=== PATIENT | male | born 1940 | race Caucasian/White ===

== ENCOUNTER 2019-06-02 10:23 | Outpatient (CLI) | payer OTHER, SELFPAY ==
--- NOTE | 2019-06-02 10:26 | ECG_ITS ---
Measurements Intervals [place] Rate: 74 P: 93 [place]: 241 QRS: -8 QRSD: 110 T: 31 QT: 377 QTc: 419 Interpretive Statements SINUS RHYTHM WITH FIRST DEGREE AV BLOCK VENTRICULAR PREMATURE COMPLEX DELAYED PRECORDIAL R/S TRANSITION LOW QRS VOLTAGE IN PRECORDIAL LEADS BASELINE ARTIFACT- V6 ABNORMAL ECG Electronically Signed On 06-02-2019 10:54:29 SALES AND BUSINESS DEVELOPMENT MANAGER by Alexandro Camejo D.O.
[2019-06-02 11:31] LABS: INR 0.9
[2019-06-02 11:32] LABS: Partial Thromboplastin Time 26.5 SECONDS (22.3-36.8)
[2019-06-02 11:39] LABS: Blood Urea Nitrogen 21 mg/dL (9-20); Calcium 9.3 mg/dL (8.4-10.2); Carbon Dioxide 29 mmol/L (22-30); Chloride 102 mmol/L (98-107); Estimated Glomerular Filt Rate > 60; Glucose 98 mg/dL (75-110); Potassium 4.8 mmol/L (3.4-5.0); Sodium 139 mmol/L (137-145)
== END 2019-06-02 10:24 | disposition home or self-care (01) ==
LOC: ANHSURGERY 10:26
PROVIDERS: Anesthesiology; PCP Internal Medicine; Visit Provider Orthopaedic Surgery
DX: Z01.818 Encounter for other preprocedural examination (principal); I10 Essential (primary) hypertension; N18.3 Chronic kidney disease, stage 3 (moderate); R94.31 Abnormal electrocardiogram [ECG] [EKG]
CPT/HCPCS: 36415; 80048; 85610; 85730; 93005

== ENCOUNTER 2019-06-16 01:20 | Day surgery (SDC) | payer OTHER, SELFPAY ==
[2019-05-31 11:46] VITALS: BMI 26.5
--- NOTE | 2019-06-14 12:01 | PM.IMHP ---
H&P: HPI History of Present Illness Chief complaint: Left Rotator Cuff Tear Narrative: Cholo Delarosa is a 78 year old male Who presents with left shoulder pain. Patient reports chronic aching pain worse with overhead type activities somewhat relieved by rest. His pain radiates into the upper arm is aching and pain despite conservative measures on his own. It has been ongoing for several months he has no known trauma or injury, it keeps him awake at night and limits his daily activities. Despite a course of further conservative management including cortisone therapy and anti-inflammatories symptoms continue. An MRI scan was done that shows supraspinatus tendinosis and partial-thickness intrasubstance tearing of the supraspinatus musculotendinous junction. No evidence of a full-thickness rotator cuff tear seen. There is AC joint hypertrophy and mild narrowing of the subacromial space. These factors are likely causing impingement and related to such. There is a question of an ill-defined tear the inferior labrum in the anterior labrum is not well characterized and may be hypoplastic. There is mild subacromial bursitis and a small glenohumeral effusion. Long head of the biceps tendon is intact and located in the bicipital groove. At this point the patient has failed conservative measures he has discuss further treatment options in detail with . Niko continues to have ongoing pain and dysfunction in the shoulder and would now like to proceed with arthroscopy acromioplasty distal clavicle excision and rotator cuff tendon repair versus debridement. Review of Systems Review of Systems: Narrative: Ten point review of systems otherwise negative All systems reviewed & are unremarkable except as noted in HPI and below PMFSH Surgical History Surgical History (Updated 06/14/19 @ 12:09 by CAROL Richardson) S/P right rotator cuff repair Family History Family History Mother Family history of malignant neoplasm of ovary Patient's mother is Father Family history of heart disease in male family member before age 55 Patient's father is Sibling Patient's sister is in good health Family history of heart disease in male family member before age 55 Patient's brother is Social History Social History Smoking status: Never smoker Alcohol intake: current Gender identity (if verbalized by the patient): Male Meds Home Medications and Allergies Home Medications Medication Instructions Recorded Confirmed Type amlodipine 5 mg tablet 5 mg PO DAILY 03/10/19 05/31/19 History aspirin 81 mg tablet,delayed 81 mg PO Q48H 03/10/19 05/31/19 History release rosuvastatin 10 mg tablet 10 mg PO DAILY #90 tablet 04/01/19 05/31/19 Rx dutasteride 0.5 mg-tamsulosin ER 1 cap PO DAILY #90 cap 04/30/19 05/31/19 Rx 0.4 mg capsule ext.release 24hr mphas Allergies Allergy/AdvReac Type Severity Reaction Status Date / Time No Known Allergies Allergy Unverified 05/31/19 11:43 Exam Narrative: Exam Narrative: HEENT exam within normal limits heart regular rate rhythm. Lungs clear auscultation. Abdomen benign bowel sounds positive for quads. Skin is intact without rashes or lesions. Extremities showed the patient's left shoulder painful with manipulation range of motion. He has pain with overhead type motion and painful reproduction of his symptoms with rotator cuff strength testing. He has some weakness with external rotation abduction which may be pain mediated. He has full range of motion actively and passively with a positive impingement sign. Shoulder joint is otherwise stable. He has full painless neck motion. Neurovascular is intact. Central nervous system exam within normal limits. The patient is noted to be 5 ft 10 in tall and 180 lb. Assessment and Plan Ad
[2019-06-16] VITALS (9 sets, daily range): BP systolic 127–161; BP diastolic 61–72; PULSE 64–84; RESP 14–20; TEMP 36.2–36.6; O2SAT 94–100
[2019-06-16] MEDS: LACTATED RINGERS 1,000 ML 30 ML IV CONT ×2 (06:25→08:41)
--- NOTE | 2019-06-16 06:43 | WPDANESEPPF ---
Anes - Initial Pre Proc Eval Procedure: Operation Date: 06/16/19 07:30 Proposed Procedures p Left Shoulder Arthroscopy, Acromioplasty, Open Distal Clavicle Excision, Rotator Cuff Repair, Proceed As Indicated - Yuan Pope MD Date/Time: 06/16/19 06:43 Surgeon: Yuan Pope MD Pre Op Diagnosis: Left Rotator Cuff Tear Patient Data Age: 78 Gender: M Height: 1.78 m Weight: 82.9 kg Last Vital Signs Temp 36.6 C 06/16/19 06:08 Pulse 64 06/16/19 06:08 Resp 20 06/16/19 06:08 BP 127/69 06/16/19 06:08 Pulse Ox 95 06/16/19 06:08 Allergies Allergy/AdvReac Type Severity Reaction Status Date / Time No Known Allergies Allergy Unverified 06/16/19 06:31 Home Medications Medication Instructions Recorded Confirmed Type amlodipine 5 mg tablet 5 mg PO DAILY 03/10/19 06/16/19 History aspirin 81 mg tablet,delayed 81 mg PO Q48H 03/10/19 06/16/19 History release rosuvastatin 10 mg tablet 10 mg PO DAILY #90 tablet 04/01/19 06/16/19 Rx dutasteride 0.5 mg-tamsulosin ER 1 cap PO DAILY #90 cap 04/30/19 06/16/19 Rx 0.4 mg capsule ext.release 24hr mphas ECG: SINUS RHYTHM WITH FIRST DEGREE AV BLOCK VENTRICULAR PREMATURE COMPLEX DELAYED PRECORDIAL R/S TRANSITION LOW QRS VOLTAGE IN PRECORDIAL LEADS BASELINE ARTIFACT- V6 Patient hx anesthesia problems: none Family hx anesthesia problems: none PMFSH Past Medical History Medical History (Updated 06/15/19 @ 09:24 by Chris Henning DO) Chronic kidney disease, stage 3 (moderate) Chronic neck pain Hyperlipidemia LDL goal <130 Hypertension Surgical History Surgical History (Updated 06/14/19 @ 12:09 by CAROL Richardson) S/P right rotator cuff repair Family History Family History Mother Family history of malignant neoplasm of ovary Patient's mother is Father Family history of heart disease in male family member before age 55 Patient's father is Sibling Patient's sister is in good health Family history of heart disease in male family member before age 55 Patient's brother is Social History Social History Smoking status: Never smoker Alcohol intake: current Gender identity (if verbalized by the patient): Male Anes - Eval Final PreProcedure Day of Procedure 06/16/19 06:43 Patient weight: overweight Heart: regular rate and rhythm Lungs: clear to auscultation and normal air movement Airway: Mallampati scale class II Neurological: alert and oriented Last oral intake: >/= 8 hours ASA classification: III Emergent: no Anesthetic plan: proceed Anesthesia type and monitoring: general ETT and standard monitoring Informed Consent: The patient's anesthetic plan and its attendant risks and benefits were discussed with the patient/family/POA. Questions were solicited and answers provided to the satisfaction of the patient/family/POA.
--- NOTE | 2019-06-16 06:44 | WPDANESPNB ---
Anes - Peripheral Nerve Block Date/Time: 06/16/19 06:44 I have discussed with the patient/family/POA the placement of a peripheral nerve block for post-operative pain management, including associated risks, benefits, complications, and side effects. Alternative methods of post-operative analgesia were detailed. Questions were solicited and answers provided to the satisfaction of the patient/family/POA. Time-Out: A pre-procedural Time-Out was completed immediately before starting the procedure and confirmed: Patient Identification, Site, Procedure, Patient Position and the Availability of Requisite Equipment. Clinical Indications: Acute post-operative pain management requested by the operative surgeon. Nerve Block Insertion Note Anes-nerve block: interscalene left Patient position: supine Skin prep: chlorhexidine Needle: 22 gauge, stimulating, insulated echogenic needle. Needle length: 50 mm Technique: ultrasound Injectate: bupivacaine 0.5% with epi 5 mcg/ml (30cc) Observations: tolerated well Complications: none Procedure start time:: 714 Procedure end time:: 717
--- NOTE | 2019-06-16 07:09 | WPDHPUPDATE1 ---
History and Physical Update Update Date/Time: 06/16/19 07:09 History and Physical has been reviewed, including an updated exam of the patient. There are NO changes in the patient's condition. Risks, benefits, and alternatives have been discussed and questions answered. Patient agrees to proceed with procedure.
[2019-06-16] MEDS: ceFAZolin 2 GM/D5W 50 ML 2 GM/50 ML BAG IVPB (07:25)
[2019-06-16] MEDS: LIDO 1%/EPINEPHRINE 1:100,000 20 ML VIAL INFILTRATE (07:47)
--- NOTE | 2019-06-16 08:28 | P.OP_ITS ---
Procedure Note - Detailed Date of procedure: 06/16/19 Pre-op diagnosis: Left Rotator Cuff Tear A/C Arthrosis Post-op diagnosis: same Procedure performed: Distal Clavicle Excision Debride and repair Rotator Cuff Anesthesia: GETA Surgeon: Yuan Pope MD Business Administration Professor: Madhav Buchanan Estimated blood loss (mL): 50 Drains: No Packing: No Pathology: none sent Complications: No immediate complications Condition: stable Disposition: PACU
--- NOTE | 2019-06-16 08:29 | SUR.OPER ---
EBL 10ML
--- NOTE | 2019-07-06 13:02 | PM.PROC ---
Procedure Note - Detailed Pre-op diagnosis: Left Rotator Cuff Tear Post-op diagnosis: same Anesthesia: GETA Surgeon: Yuan Pope MD Patient was brought to operating room #7. A general anesthetic was used. Patient was placed in the beach chair position and sterilely prepped and draped. Standard posterior and lateral portals were made. The shoulder was scoped and found to have significant tearing of the rotator cuff. The bicpes was intact The subacromial space showed substantial bursitis which was debrided with a shaver. An acromioplasty was then performed. The instruments were removed and a longitudinal incision made over the A/C joint. Disection carried down to the fascia. A distal clavicle excision was then performed removing about 3mm of distal clavicle. The edges were bevelled. The deltoid was split from the tip of the acromion distal for 2 cm. The rotator cuff tearing was visualized. This was debrided and repaired to the tuberosity in the area othat was debrided to bleeding bone. The acromion rapsed to maximize decompression. The deltoid was repaired to itself, the acromion and the trapezius, and closed with 2-0 vicryl and taj. The patient tolerated the procedure well. DATE OF SURGERY 06/16/19 Cutter Head Sharpener: Madhav Buchanan Estimated blood loss (mL): 50 Drains: No Packing: No Pathology: none sent Complications: No immediate complications Condition: stable Disposition: PACU
== END 2019-06-16 10:53 | disposition home or self-care (01) ==
PROVIDERS: PCP Internal Medicine; Visit Provider Orthopaedic Surgery
PROC: (CPT 29805; principal; 2019-06-16 07:30)
DX: M75.102 Unspecified rotator cuff tear or rupture of left shoulder, not specified as traumatic (principal); M75.52 Bursitis of left shoulder; G89.18 Other acute postprocedural pain; I12.9 Hypertensive chronic kidney disease with stage 1 through stage 4 chronic kidney disease, or unspecified chronic kidney disease; N18.3 Chronic kidney disease, stage 3 (moderate); E78.5 Hyperlipidemia, unspecified; Z79.82 Long term (current) use of aspirin
CPT/HCPCS: 64415; 23412; 23120; J0330; J0690; J1100; J2250; J2405; J2704; J3010; J7120

== ENCOUNTER 2023-03-05 12:09 | Emergency (ER) | payer OTHER, SELFPAY ==
[2023-03-05] VITALS (20 sets, daily range): BP systolic 117–143; BP diastolic 61–81; PULSE 79–104; RESP 11–18; TEMP 36.1; O2SAT 92–99
--- NOTE | ~2023-03-05 | XR_ITS ---
XR chest 2V 03/05/2023 14:42 Indication: Chest pain. Shortness of breath. Procedure: 2 view chest Comparison: Comparison to multiple prior studies sequentially, with oldest reviewed study dated 09/21. Findings: Left basilar atelectasis/scarring. Heart size normal. No focal pneumonia, pleural effusion, pulmonary edema or pneumothorax. Healed left clavicular fracture. No acute osseous abnormality. Impression: 1: Left basilar atelectasis/scarring. Reviewed, dictated and finalized at location B. DITER SERVICE ORDER Impression: 1: Left basilar atelectasis/scarring.
--- NOTE | ~2023-03-05 | CT_ITS ---
EXAMINATION: CTA chest PE protocol DATE: 03/05/2023 15:51 CIVIL ENGINEERING PROJECT MANAGER INDICATION: Chest and back pain TECHNIQUE: Computed tomographic angiography (CTA) of the chest was performed with 100 mL Omnipaque-35 0 intravenous contrast. The dose-length product was 511.47 mGy-cm. Maximum intensity projection 3D-re constructions of the aorta and other arteries were constructed by the technologist on a separate work station. COMPARISON: None. FINDINGS: There is dependent atelectasis. No significant pleural effusion. Small pericardial effusion . Cardiomegaly. Enlarged central pulmonary arteries consistent with pulmonary hypertension. Study is technically adequate without evidence for pulmonary embolism. No thoracic lymphadenopathy. Small low- density lesions in the liver primarily involving the left hepatic lobe are statistically most likely benign cysts or hemangiomas. There is interlobular septal thickening suggesting chronic interstitial lung disease. No endobronchial lesions. No pneumothorax. IMPRESSION: 1. No evidence for pulmonary embolism. 2: Pulmonary arterial hypertension. 3: Small pericardial effusion. 4: Bibasilar dependent atelectasis. Reviewed, dictated and finalized at location B. L ENGINEERING PROJECT MANAGER
--- NOTE | 2023-03-05 14:15 | ECG_ITS ---
Measurements Intervals [place] Rate: 91 P: NE: 0 QRS: -14 QRSD: 82 T: 71 QT: 340 QTc: 420 Interpretive Statements ATRIAL FIBRILLATION CANNOT RULE OUT SEPTAL INFARCT, AGE INDETERMINATE BASELINE ARTIFACT- II, III, AVR ABNORMAL ECG COMPARED TO ECG 06/02/2019 10:55:45 ATRIAL FIBRILLATION NOW PRESENT Electronically Signed On 03-05-2023 15:15:13 LABORER SALVAGE by Alexandro Camejo D.O.
--- NOTE | 2023-03-05 14:28 | ED.BACK ---
HPI - Back Pain/Injury General Chief Complaint: Back Pain/Injury Stated Complaint: back pain Time Seen by Provider: 03/05/23 13:55 Source: patient Mode of arrival: ambulatory Limitations: no limitations History of Present Illness HPI Narrative: This is a 82 year old male that presents to the ER for chest pain. Ongoing over the last week. Reports he woke up one day and felt a pain on the right side of his chest. Worse with movement and deep breathing. Reports he has also had back on the right side of his back that is worse with breathing. He has been taking over the counter medications with some relief. Denies fever, cough, shortness of breath or lower extremity edema. Related Data Home Medications Medication Instructions Recorded Confirmed aspirin 81 mg tablet,delayed 81 mg PO Q48H 03/10/19 12/18/22 release Allergies Allergy/AdvReac Type Severity Reaction Status Date / Time No Known Allergies Allergy Verified 03/05/23 12:10 Review of Systems Review of Systems: CONSTITUTIONAL: Denies fever CARDIOVASCULAR: Reports chest pain. Denies edema. RESPIRATORY: Denies cough or dyspnea. MUSCULOSKELETAL: Reports back pain, joint pain, and myalgia. All systems reviewed & are unremarkable except as noted in HPI and below PMFSH Past Medical History Medical History Benign hypertension with CKD (chronic kidney disease) stage III Chronic kidney disease, stage 3 (moderate) Chronic neck pain Hyperlipidemia LDL goal <130 Hypertension Surgical History Surgical History S/P right rotator cuff repair Family History Family History Mother Family history of malignant neoplasm of ovary Patient's mother is Father Family history of heart disease in male family member before age 55 Patient's father is Sibling Patient's sister is in good health Family history of heart disease in male family member before age 55 Patient's brother is Social History Social History Smoking status: Never smoker Alcohol intake: never Substance use: never Substance use type: does not use Gender identity (if verbalized by the patient): Male Exam Narrative: GENERAL: Well-appearing, well-nourished, and in no acute distress. HEAD: Normocephalic, atraumatic. EYES: EOMI. ENT: Nares clear, no rhinorrhea or epistaxis. Mucous membranes moist. Oropharynx without tonsillar hypertrophy exudate or other lesions. Bilateral TMs pearly lomeli non-bulging NECK: Supple. No adenopathy or masses. No JVD CHEST: Clear to auscultation. No respiratory distress. No wheezes rales or rhonchi HEART: Regular rate and rhythm. No murmur heard. Normal peripheral pulses. EXTREMITIES: Normal range of motion. No edema. SKIN: Warm, dry, no rash. NEURO: No focal deficits. Alert and oriented x3. PSYCH: Normal mood and affect Course Course Emergency Course: Patient updated on workup and recommendation for admission. He declines admission at this time. Reports he will follow-up with his primary care doctor and cardiology outpatient. I attempted to reach his PCP without success Vital Signs Vital signs: Vital Signs Temperature 97.0 F L 03/05/23 12:12 Pulse Rate 104 H 03/05/23 12:12 Respiratory Rate 16 03/05/23 12:12 Blood Pressure 143/79 H 03/05/23 12:12 Pulse Oximetry 99 03/05/23 12:12 Temperature 97.0 F L 03/05/23 12:12 Pulse Rate 89 03/05/23 16:46 Respiratory Rate 16 03/05/23 16:46 Blood Pressure 133/79 03/05/23 16:46 Pulse Oximetry 94 03/05/23 16:46 MDM - Back Pain/Injury MDM Narrative Medical decision making narrative: Patient presents to the ER for chest pain and back pain. Ongoing over the last week. Tachycardic upon arriva
[2023-03-05 14:44] LABS: Basophils Percent Auto 0.3 % (0.2-1.2); Eosinophils Absolute Auto 0.1 K/mm3 (0-0.3); Hematocrit 45.4 % (42.0-52.0); Hemoglobin 14.7 g/dL (14.0-18.0); Immature Granulocyte Absolute 0.02 K/mm3 (0.00-0.031); Immature Granulocyte Percent A 0.2 % (0-0.5); Lymphocytes Absolute Auto 1.23 K/mm3 (0.9-3.2); Lymphocytes Percent Auto 12.1 % (18.3-44.2); Mean Corpuscular HGB Conc 32.4 g/dl (32-36); Mean Corpuscular Hemoglobin 31.4 pg (26-34); Mean Platelet Volume 10.4 fl (7.4-10.4); Monocytes Absolute Auto 1.3 K/mm3 (0.1-0.6); Neutrophils Absolute Auto 7.5 K/mm3 (1.3-6.7); Neutrophils Percent Auto 73.4 % (45.5-73.1); Platelet Count Result 359 k/mm3 (150-375); Red Blood Count 4.68 M/mm3 (4.6-6.20); Red Cell Distribution Width 14.7 % (11.5-14.5); White Blood Count 10.2 K/mm3 (4.5-10.0)
[2023-03-05 14:51] LABS: Prothrombin Time 13.4 Seconds (11.1-14.7)
[2023-03-05 14:52] LABS: Alanine Aminotransferase 11 U/L (6-50); Albumin Level 4.3 g/dL (3.5-5.1); Alkaline Phosphatase 104 U/L (38-126); Anion Gap 11 mmol/L (8-16); Aspartate Amino Transferase 21 U/L (17-59); Blood Urea Nitrogen 21 mg/dL (9-20); Calcium 9.4 mg/dL (8.4-10.2); Carbon Dioxide 29 mmol/L (22-30); Chloride 100 mmol/L (98-107); Estimated Glomerular Filt Rate 53; Glucose 101 mg/dL (65-110); Lipase 45 U/L (23-300); Partial Thromboplastin Time 31.7 SECONDS (22.3-36.8); Sodium 140 mmol/L (137-145)
[2023-03-05 15:03] LABS: Troponin I < 0.012 ng/mL (0.000-0.034)
[2023-03-05 15:17] LABS: D Dimer 0.56 ug/mL (<0.48)
[2023-03-05] MEDS: ACETAMINOPHEN 500 MG TABLET 1000 MG PO (16:36)
[2023-03-05] MEDS: KETOROLAC 15 MG/ML VIAL (*BKC) IV PUSH (16:36)
[2023-03-05 18:09] LABS: Troponin I < 0.012 ng/mL (0.000-0.034)
== END 2023-03-05 18:11 | disposition home or self-care (01) ==
PROVIDERS: Emergency Provider Physician Assistant; PCP Nurse Practitioner
DX: I31.39 Other pericardial effusion (noninflammatory) (principal); I48.91 Unspecified atrial fibrillation; I12.9 Hypertensive chronic kidney disease with stage 1 through stage 4 chronic kidney disease, or unspecified chronic kidney disease; N18.30 Chronic kidney disease, stage 3 unspecified; E78.5 Hyperlipidemia, unspecified
CPT/HCPCS: 36415; 71046; 71275; 80053; 83690; 84484; 85025; 85380; 85610; 85730; 93005; 96374; 99284; A9270; J1885; Q9967

== ENCOUNTER 2023-04-08 08:41 | Outpatient (CLI) | payer OTHER, SELFPAY ==
--- NOTE | 2023-04-08 08:44 | ECHO_ITS ---
Patient Info Name: Cholo Delarosa Age: 82 years : 1940 Gender: Male Ht: 69 in Wt: 178 lbs BSA: 2.00 m2 HR: 70 bpm BP: 124 / 80 mmHg Heart Rhythm: Atrial Fibrillation Technical Quality: Fair Exam Date: 04/08/2023 8:52 AM Exam Location: Echo Lab Patient Status: Outpatient Admit Date: 04/08/2023 Staff Ordering Physician: Natan Ziegler APRN Attending Provider: Natan Ziegler APRN Referring Physician: Toney CARO; Exam Type: CA echo doppler color flow Study Info Indications I48.1 - Persistent atrial fibrillation Complete two-dimensional, color flow and Doppler transthoracic echocardiogram is performed. Summary 1. Complete two-dimensional, color flow and Doppler transthoracic echocardiogram is performed. 2. Left ventricular chamber dimension is normal. 3. Left ventricular systolic function is normal, estimated at 60-65%. 4. The left ventricular diastolic function is grade III diastolic dysfunction. 5. Atrial fibrillation. 6. Left atrial chamber dimension is severely enlarged. 7. Right atrial chamber dimension is severely enlarged. 8. There is moderate aortic valve sclerosis. 9. There is mild mitral valve regurgitation. 10. There is moderate tricuspid valve regurgitation. 11. Mild pulmonary hypertension, estimated pulmonary arterial systolic pressure is 44 mmHg. Left Ventricle Atrial fibrillation. Tissue doppler is not performed. Left ventricular chamber dimension is normal. Left ventricular systolic function is normal, estimated at 60-65%. The left ventricular diastolic function is grade III diastolic dysfunction. Right Ventricle Right ventricular chamber dimension is normal. Right ventricular systolic function is normal. Left Atria Left atrial chamber dimension is severely enlarged. Right Atria Right atrial chamber dimension is severely enlarged. Aortic Valve The aortic valve is trileaflet. There is moderate aortic valve sclerosis. There is no aortic valve stenosis. There is no aortic valve regurgitation. Pulmonic Valve There is no pulmonic regurgitation. Mitral Valve There is no mitral valve stenosis. There is mild mitral valve regurgitation. Tricuspid Valve There is moderate tricuspid valve regurgitation. Mild pulmonary hypertension, estimated pulmonary arterial systolic pressure is 44 mmHg. Pericardium/Pleural There is no pericardial effusion. Inferior Vena Cava Normal inferior vena cava with >50% collapse upon inspiration consistent with normal right atrial pressure, 5 mmHg. Aorta The aortic root size at the sinus of Valsalva is normal. Left Ventricular Outflow Tract Name Value Normal LVOT 2D LVOT Diameter 2.0 cm LVOT Doppler LVOT Peak Gradient 3 mmHg LVOT Mean Gradient 1 mmHg LVOT VTI 19 cm LVOT VTI/AV VTI Ratio 0.7 LVOT Stroke Volume 57 ml LVOT CO 3.6 l/min LVOT CI 1.8 l/min/m2 Pulmonic Valve Name Value Normal
== END 2023-04-08 08:42 | disposition home or self-care (01) ==
PROVIDERS: PCP Nurse Practitioner; Visit Provider Nurse Practitioner
DX: I48.91 Unspecified atrial fibrillation (principal); Z09 Encounter for follow-up examination after completed treatment for conditions other than malignant neoplasm; I08.3 Combined rheumatic disorders of mitral, aortic and tricuspid valves
CPT/HCPCS: 93306

== ENCOUNTER 2023-11-11 18:35 | Emergency (ER) | payer OTHER, SELFPAY ==
[2023-11-11 18:36] VITALS: BP 141/78; PULSE 77; RESP 18; TEMP 36.4; O2SAT 97
--- NOTE | 2023-11-11 19:05 | ED.WOUNDLAC ---
HPI - Wound/Laceration General Chief Complaint: Wound/Laceration Stated Complaint: tore all the skin off my arm Time Seen by Provider: 11/11/23 18:51 Source: patient Mode of arrival: ambulatory Limitations: no limitations History of Present Illness HPI narrative: this is an 82-year-old male who presents to the ED with chief complaint of skin tear to the right forearm that occurred just prior to arrival. Patient states that he was Trying to cut a piece of equipment up onto his tractor and his arm slipped. Reports that the arm came across the equipment and caused a skin tear throughout the right arm. Denies any further sites of pain or injury. Denies any lacerations above the level of the elbow. Denies numbness or focal weakness of the extremity distally. patient is on Eliquis b.i.d. Related Data Allergies Allergy/AdvReac Type Severity Reaction Status Date / Time No Known Allergies Allergy Verified 11/11/23 19:39 Review of Systems Review of Systems: All systems as dictated in HPI PMFSH Past Medical History Medical History Benign hypertension with CKD (chronic kidney disease) stage III Chronic kidney disease, stage 3 (moderate) Chronic neck pain Hyperlipidemia LDL goal <130 Hypertension Surgical History Surgical History S/P right rotator cuff repair Family History Family History Mother Family history of malignant neoplasm of ovary Patient's mother is Father Family history of heart disease in male family member before age 55 Patient's father is Sibling Patient's sister is in good health Family history of heart disease in male family member before age 55 Patient's brother is Social History Social History Smoking status: Never smoker Alcohol intake: never Substance use: never Substance use type: does not use Gender identity (if verbalized by the patient): Male Exam Narrative: GENERAL: Well-appearing, well-nourished, and in no acute distress. HEAD: Normocephalic, atraumatic. EYES: PERRLA and EOMI. ENT: Nares clear, no rhinorrhea or epistaxis. Mucous membranes moist. Oropharynx without tonsillar hypertrophy exudate or other lesions. NECK: Supple. No adenopathy or masses. CHEST: No respiratory distress. Clear to auscultation. No wheezes rales or rhonchi HEART: Regular rate and rhythm. No murmur heard. Normal peripheral pulses. ABDOMEN: Soft, nontender, nondistended, normal active bowel sounds. MSK: Normal range of motion. No edema. Able to the fully open and close fist of the right hand. SKIN: Extensive skin tears to the dorsum of the right forearm. Bleeding controlled. Muscle fascia exposed. 5 separate lacerations/skin tears, Ranging from 9 cm to 3 cm. NEURO: Alert and oriented x4. No focal deficits. PSYCH: Normal mood and affect. Course Vital Signs Vital signs: Vital Signs Temperature 97.6 F 11/11/23 18:36 Pulse Rate 77 11/11/23 18:36 Respiratory Rate 18 11/11/23 18:36 Blood Pressure 141/78 H 11/11/23 18:36 Pulse Oximetry 97 11/11/23 18:36 Oxygen Delivery Room Air 11/11/23 18:36 Temperature 97.6 F 11/11/23 18:36 Pulse Rate 77 11/11/23 18:36 Respiratory Rate 18 11/11/23 18:36 Blood Pressure 141/78 H 11/11/23 18:36 Pulse Oximetry 97 11/11/23 18:36 Oxygen Delivery Room Air 11/11/23 18:36 Procedures Laceration Laceration 1: Date: 11/11/23 Time: 20:00 Site: upper extremity Side (If applicable): right Size (cm): 9 Description: linear Depth: simple, single layer Local Anesthetic: other anesthetic (LET gel) Pre-repair: wound explored, irrigated extensively and deep structures intact
[2023-11-11] MEDS: LIDOCAINE, EPINEPHRINE, TETRACAINE VISCOUS SOLN 3 ML 6 ML TOPICAL (19:43)
[2023-11-11] MEDS: ACETAMINOPHEN 500 MG TABLET 1000 MG PO (19:54)
[2023-11-11] MEDS: TETANUS,DIPHTHERIA,AC PERTUSSIS ADULT (0.5 ML) BOOSTRIX IM (19:55)
== END 2023-11-11 21:57 | disposition home or self-care (01) ==
PROVIDERS: Emergency Provider Physician Assistant; PCP Nurse Practitioner
DX: S51.811A Laceration without foreign body of right forearm, initial encounter (principal); I12.9 Hypertensive chronic kidney disease with stage 1 through stage 4 chronic kidney disease, or unspecified chronic kidney disease; N18.30 Chronic kidney disease, stage 3 unspecified; E78.5 Hyperlipidemia, unspecified; Z23 Encounter for immunization; W45.8XXA Other foreign body or object entering through skin, initial encounter
CPT/HCPCS: 12005; 90471; 90715; 99283; A9270